=== PATIENT | female | born 1970 | race Caucasian/White ===

== ENCOUNTER 2018-03-10 05:28 | Inpatient (IN) | END 2018-03-13 21:13 | disposition home or self-care (01) | DRG 470 ==

== ENCOUNTER 2018-06-23 07:32 | Inpatient (IN) | payer BC ==
[2018-06-20 12:27] VITALS: BMI 28.1
[2018-06-23] VITALS (35 sets, daily range): BP systolic 95–119; BP diastolic 51–83; PULSE 63–86; RESP 16–25; Ht 170.2 cm; Wt 82.2 kg
[~2018-06-23] VITALS: Ht 170.2 cm; Wt 82.2 kg
--- NOTE | 2018-06-23 06:03 | HPN ---
Date/Time of Note Date/Time of Note DATE: 06/23/18 TIME: 06:03 Interval H&P Admission Note Pt. seen H&P reviewed: No system changes VIOLETTE GUERRA MD Jun 23, 2018 06:03
--- NOTE | 2018-06-23 06:05 | OPR ---
Date/Time of Note Date/Time of Note DATE: 06/23/18 TIME: 06:03 Operative Report Procedure Date: Jun 23, 2018 Preoperative Diagnosis Left hip primary arthritis Postoperative Diagnosis Left hip primary arthritis Operation/Procedure Performed 1. Left total hip arthroplasty 2. Left hip injection of PRP solution Surgeon see signature line Filbert Grower Andre Candelario PA-C Second Filbert Grower: JAYLON LÓPEZ Anesthesia Type: general Estimated Blood Loss: 200 - 250 ml's Transfusion none Specimen NONE Grafts/Implants none Complications none Pt Condition Post Procedure: stable Disposition: PACU Procedure Description Filbert Grower Surgeon: Mr Candelario was integral to the positioning and assistance necessary in the exposure of the hip joint as well as protection of the neurovascular structures. In my opinion at the assistance offered by a certified ophthalmic surgical assistant is insufficient and Mr. Camacho should be compensated for his time. PROCEDURE IN DETAIL: Following the administration of general endotracheal ane sthesia supplemented with a spinal anesthetic, the patient was placed in the supine position. The antecubital fossa on the left was prepped and 60 cc of blood were aspirated. Under sterile conditions, the blood was passed off to the logistics service representative from the company who prepared the PRP solution. The left lower extremity was then prepped and draped in the usual sterile fashion. A temporary office assistant radiograph was obtained for preliminary limb length and femoral size as well as acetabular size. A lateral incision was then made exposing the tensor fascia the fascia was incised the tensor was retracted laterally and the vessels were cauterized. The anterior capsule was then identified and prepared. A capsulectomy was then performed and the femoral head was then evaluated. Severe arthritic changes were noted. A femoral head cut was then made in the appropriate degree of version and inclination. Following dislocation, severe arthritic changes were noted with very certain severe cystic changes in the femoral head. The acetabulum was then exposed and a capsulectomy and labrectomy were completed. The central portion was then entered and serially reamed up to the 47 mm size. A Depuy Monson cup which was 52 mm, with a standard liner was then fit into position with solid fixation. A 30 mm screw was used for additional fixation. Attention was then directed to the femur, the femur was exposed and prepared. The canal was entered and serially reamed up to the size 4. The femoral canal was then thoroughly irrigated and the PRP solution was then instilled into the femoral canal. A size 4 Depuy Actis stem was then inserted with solid fixation. A 32 mm, +1.5 mm femoral head, which was ceramic was then inserted. The leg was taken through full range of motion with no evident instability. In addition, radiographs revealed excellent position with reproduction of the limb lengths within a millimeter. The wound was irrigated thoroughly. The wound was then closed in layers and a Prenio for the final cover. This was watertight. Estimated blood loss was procedure was 250 cc. Postoperative radiographs will be obtained in the recovery room. VIOLETTE GUERRA MD Jun 23, 2018 06:05
[~2018-06-23 07:32] MED LIST: BUPIVACAINE 0.5% (SDV) 30 ML, morphine SULFATE (PF) 8 MG, EPINEPHrine 0.3 MG, KETOROLAC... IRR SCH; CEFAZOLIN 1 GM INJ ONE; CEFAZOLIN 2 GM/50 ML (PMX) 50 ML IVPB ONE; DEXAMETHASONE 1 MG TAB PO ONE; GABAPENTIN 300 MG CAP PO ONE; SOD CHLORIDE 0.9% 100 ML, TRANEXAMIC ACID 3,000 MG IRR ONE
--- NOTE | 2018-06-23 09:08 | PREAC ---
Date/Time of Note Date/Time of Note DATE: 06/23/18 TIME: 09:07 Anesthesia Eval and Record Evaluation Time Pre-Procedure Interview DATE: 06/23/18 TIME: 09:07 Age 48 Sex female NPO: 8 hrs Preoperative diagnosis L Hip OA Planned procedure L Total Hip Replacement Past Medical History Past Medical History: Includes GI: Obesity Surgery & Anesthesia Issues No known issue Meds Anticoagulation: No Beta Jeanne within 24 hr: No Reason Beta Jeanne not given: Pt. not on B-Jeanne No Active Prescriptions or Reported Meds Meds reviewed: Yes Allergies Coded Allergies: No Known Allergy (Unverified , 06/23/18) Allergies Reviewed: Yes Labs/Studies Labs Reviewed: Reviewed by anesthesiologist test: Negative Pre-procedure Exam Last vitals Vital Signs Date Temp Pulse Resp B/P (MAP) Pulse Ox O2 O2 Flow FiO2 Time Delivery Rate 06/23/18 97.6 75 16 114/63 96 Room Air 08:37 (80) Airway: Adequate mouth opening, Adequate thyromental dist Mallampati: Mallampati II Teeth: Normal Lung: Normal Heart: Normal ASA Physical Status ASA physical status: 2 Emergency: None Planned Anesthetic General/MAC: ETT Neuraxial: Spinal Planned Pain Management Sub-arachniod narcotics Pre-operative Attestations Prior to commencing anesthesia and surgery, the patient was re-evaluated, there was verification of: *The patient's identity *The results of appropriate recent lab work and preoperative vital signs *The above evaluation not changing prior to induction *Anesthetic plan, risk benefits, alternative and complications discussed with patient/family; questions answered; patient/family understands, accepts and wishes to proceed. LOC GIRALDO Jun 23, 2018 09:08
[2018-06-23] MEDS ORDERED: MIDAZOLAM 1 MG/ML 2 ML INJ ONE (09:20)
[2018-06-23] MEDS ORDERED: DIPHENHYDRAMINE 50 MG INJ IV PRN ×2 (09:30→11:00)
[2018-06-23] MEDS ORDERED: MEPERIDINE 25 MG INJ IV PRN (09:30)
[2018-06-23] MEDS ORDERED: HYDROmorphONE 1 MG/5 ML IV SYRINGE IV PRN ×3 (09:30)
[2018-06-23] MEDS ORDERED: METOCLOPRAMIDE 10 MG INJ IV PRN (09:30)
[2018-06-23] MEDS ORDERED: FENTAnyl 50 MCG/ML VIAL IV PRN ×3 (09:30)
[2018-06-23] MEDS ORDERED: ONDANSETRON 4 MG INJ IV PRN ×2 (09:30→11:00)
[2018-06-23] MEDS ORDERED: ALBUTEROL 0.083% (NEB) 2.5 MG/3 ML AMP HHN PRN (09:30)
[2018-06-23] MEDS: TRANEXAMIC ACID 1GM/100ML(PMX) 100 ML IVPB ONE ×2 (10:00→12:45)
[2018-06-23] MEDS ORDERED: CA CHLORIDE 10% 10 ML SYRINGE ONE (10:01)
[2018-06-23] MEDS ORDERED: THROMBIN 5000 UNIT VIAL ONE (10:01)
[2018-06-23] MEDS ORDERED: POLYMYXIN/BACITRACIN 1L IRRIG ONE (10:03)
[2018-06-23] MEDS: TRANEXAMIC ACID 1GM/100ML(PMX) 200 ML ONE ×2 (10:45→12:45)
[2018-06-23] MEDS ORDERED: CEFAZOLIN 1 GM/50 ML (PMX) 50 ML IVPB SCH (11:00)
[2018-06-23] MEDS ORDERED: NACL 0.9% 3 ML SYG IV SCH (11:00)
[2018-06-23] MEDS ORDERED: ZOLPIDEM 5 MG TAB PO PRN (11:00)
[2018-06-23] MEDS ORDERED: MAGNESIUM HYDROXIDE 30ML CUP PO PRN (11:00)
[2018-06-23] MEDS ORDERED: SUCCINYLCHOLINE CHLORIDE 100 MG/5 ML SYG IV ONE (11:08)
[2018-06-23] MEDS ORDERED: LIDOCAINE 100 MG SYRINGE ONE (11:08)
[2018-06-23] MEDS ORDERED: PROPOFOL 20 ML ONE (11:08)
[2018-06-23] MEDS ORDERED: ROCURONIUM 50 MG INJ ONE (11:08)
[2018-06-23] MEDS ORDERED: SUGAMMADEX SODIUM 200 MG/2 ML VIAL IV ONE (11:09)
[2018-06-23] MEDS ORDERED: CEFAZOLIN 1 GM/50 ML (PMX) 0 ML IVPB ONE (12:22)
[2018-06-23] MEDS ORDERED: HYDROmorphONE 1 MG/ML SYG IV PRN (14:00)
[2018-06-23] MEDS: ACETAMINOPHEN 1000MG/100ML IV 100 ML IVPB SCH ×2 (14:00→19:05)
[2018-06-23] MEDS ORDERED: oxyCODONE 5 MG TAB PO PRN (14:00)
[2018-06-23] MEDS: DEXAMETHASONE 2 MG TAB PO SCH ×3 (18:00→23:35)
[2018-06-23] MEDS: CEFAZOLIN 1 GM/50 ML (PMX) 50 ML IVPB SCH (18:04)
[2018-06-23] MEDS: LACTATED RINGER'S 1,000 ML IV SCH ×2 (18:07→20:58)
--- NOTE | 2018-06-23 18:08 | PDOCDIS ---
Discharge Instructions DIAGNOSIS Discharge Diagnosis Hip Arthritis CONDITION [id number] Patient Condition: [id number] Good HOME CARE INSTRUCTIONS: [id number] Diet Instructions: [id number] Regular ACTIVITY: [id number] Activity Restrictions: [id number] Slowly Increase Activity Keep Limb Elevated [id number] Bathing Restrictions: Frisa0m Shower FOLLOW UP/APPOINTMENTS Follow-up Plan 2 weeks in the office SCHOOL/WORK RELEASE May return to School/Work with: With Restrictions School/Work Release Comment: No hip extension for three months VIOLETTE GUERRA MD Jun 23, 2018 18:08
--- NOTE | 2018-06-23 18:58 | PAC ---
Date/Time of Note Date/Time of Note DATE: 06/23/18 TIME: 18:58 Post-Anesthesia Notes Post-Anesthesia Note Last documented vital signs Vital Signs Date Temp Pulse Resp B/P (MAP) Pulse Ox O2 O2 Flow FiO2 Time Delivery Rate 06/23/18 98.4 63 18 102/57 100 Room Air 16:45 (72) Activity: WNL Respiratory function: WNL Cardiovascular function: WNL Mental status: Baseline Pain reasonably controlled: Yes Hydration appropriate: Yes Nausea/Vomiting absent: Yes LOC GIRALDO Jun 23, 2018 18:58
[2018-06-23] MEDS: GABAPENTIN 300 MG CAP PO SCH (21:00)
[2018-06-23] MEDS: SENNA/DOCUSATE NA (8.6MG/50MG) TAB PO SCH (21:06)
[2018-06-24 00:09] VITALS: BP 114/65; PULSE 65; RESP 20
[2018-06-24] MEDS: CEFAZOLIN 1 GM/50 ML (PMX) 50 ML IVPB SCH ×2 (01:29→10:42)
[2018-06-24] MEDS: ACETAMINOPHEN 1000MG/100ML IV 100 ML IVPB SCH (03:39)
--- NOTE | 2018-06-24 06:08 | PN ---
Date/Time of Note Date/Time of Note DATE: 06/24/18 TIME: 06:08 Subjective Awake and alert with no complaints Objective Vitals Vital Signs Date Temp Pulse Resp B/P (MAP) Pulse Ox O2 O2 Flow FiO2 Time Delivery Rate 06/24/18 98.6 65 20 114/65 96 Room Air 00:09 (81) Intake and Output 06/23/18 06/23/18 06/24/18 1414:59 22:59 06:59 IntakeIntake Total 2400 ml 250 ml 500 ml OutputOutput Total 325 ml 800 ml 1800 ml BalanceBalance 2075 ml -550 ml -1300 ml Wound is clean and dry. Neurologically intact. No signs of DVT. Results Result Diagram: 06/24/18 0435 Medications Medications Current Medications Lactated Ringer's 1,000 ml @ 100 mls/hr Q10H IV Last administered on 06/23/18at 18:07; Admin Dose 100 MLS/HR; Start 06/23/18 at 10:58 Senna/Docusate Sodium (Senokot-S) 1 tab BID PO Last administered on 06/23/18at 21:06; Admin Dose 1 TAB; Start 06/23/18 at 21:00 Simethicone (Mylicon) 80 mg TID PRN PO .GAS; Start 06/23/18 at 11:00 Magnesium Hydroxide (Milk Of Mag) 30 ml BID PRN PO .CONSTIPATION; Start 06/23/18 at 11:00 Magnesium Hydroxide (Milk Of Mag) 30 ml HS PO ; Start 06/25/18 at 21:00 Gabapentin (Neurontin) 300 mg HS PO ; Start 06/23/18 at 21:00 Oxycodone HCl (Roxicodone) 15 mg Q4H PRN PO .PAIN; Start 06/23/18 at 14:00 Oxycodone HCl (Roxicodone) 10 mg Q4H PRN PO .PAIN; Start 06/23/18 at 14:00 Oxycodone HCl (Roxicodone) 5 mg Q4H PRN PO .PAIN; Start 06/23/18 at 14:00 Hydromorphone HCl (Dilaudid) 1 mg Q4H PRN IV .BREAKTHROUGH PAIN; Start 06/23/18 at 14:00 Ondansetron HCl (Zofran Inj) 4 mg Q6H PRN IV NAUSEA/VOMITING; Start 06/23/18 at 11:00 Diphenhydramine HCl (Benadryl) 25 mg Q6H PRN IV .PRURITUS; Start 06/23/18 at 11:00 Zolpidem Tartrate (Ambien) 10 mg HS PRN PO .INSOMNIA; Start 06/23/18 at 11:00 IV Flush (NS 3 ml) 3 ml per protocol IV ; Start 06/23/18 at 11:00 Aspirin (Ecotrin) 325 mg DAILY PO ; Start 06/24/18 at 09:00 Cefazolin Sodium 50 ml @ 100 mls/hr Q8H IVPB Last administered on 06/24/18at 01:29; Admin Dose 100 MLS/HR; Start 06/23/18 at 18:00; Stop 06/24/18 at 10:29 VTE Prophylaxis Risk score (from Ns)>0 risk: 5 [place] [facility] [place]/Catheters IV Catheter Type: Saline Lock [place] in Place: No Assessment/Plan Assessment/Plan Assessment: Status post total hip replacement Plan: Begin PT this morning discharge after cleared VIOLETTE GUERRA MD Jun 24, 2018 06:08
[2018-06-24] MEDS: DEXAMETHASONE 2 MG TAB PO SCH (06:09)
[2018-06-24] MEDS: LACTATED RINGER'S 1,000 ML IV SCH ×2 (06:09→16:58)
--- NOTE | 2018-06-24 06:09 | DS ---
Date/Time of Note Date/Time of Note DATE: 06/24/18 TIME: 06:08 Discharge Summary Admission/Discharge Info Admit Date/Time Jun 23, 2018 at 07:32 Discharge Date/Time 06/24/2018 Discharge Diagnosis Hip Arthritis Patient Condition: Good Hospital Course Admitted and underwent uncomplicated procedure. Postop day 1 doing well discharge after PT Home Meds No Active Prescriptions or Reported Meds Follow-up Plan 2 weeks in the office Primary Care Provider Not On Staff Doctor Pending Labs Laboratory Tests Test 06/23/18 11:58 06/24/18 04:35 White Blood Count 7.0 10^3/ul (4.8-10.8) 11.3 10^3/ul (4.8-10.8) Red Blood Count 3.84 10^6/ul (4.20-5.40) 3.60 10^6/ul (4.20-5.40) Hemoglobin 11.0 g/dl (12.0-16.0) 10.5 g/dl (12.0-16.0) Hematocrit 34.5 % (37.0-47.0) 32.6 % (37.0-47.0) Mean Corpuscular Volume 89.8 fl (82.0-101.0) 90.6 fl (82.0-101.0) Mean Corpuscular 28.6 pg (29.0-33.0) 29.2 pg (29.0-33.0) Hemoglobin Mean Corpuscular 31.9 g/dl (32.0-37.0) 32.2 g/dl (32.0-37.0) Hemoglobin Concent Red Cell Distribution 14.1 % (11.5-14.5) 14.4 % (11.5-14.5) Width Platelet Count 293 10^3/UL (140-415) 286 10^3/UL (140-415) Mean Platelet Volume 9.3 fl (7.4-10.4) 10.2 fl (7.4-10.4) Immature Granulocytes % 1.700 % (0.001-0.429) 0.500 % (0.001-0.429) Neutrophils % 75.1 % (39.0-77.0) 85.2 % (39.0-77.0) Lymphocytes % 17.5 % (15.0-51.0) 8.7 % (15.0-51.0) Monocytes % 4.3 % (0.0-11.0) 5.4 % (0.0-11.0) Eosinophils % 0.7 % (0.0-7.0) 0.0 % (0.0-7.0) Basophils % 0.7 % (0.0-2.0) 0.2 % (0.0-2.0) Nucleated Red Blood Cells 0.0 /100WBC (0.0-0.0) 0.0 /100WBC (0.0-0.0) % Immature Granulocytes # 0.120 10^3/ul (0.0-0.031) 0.060 10^3/ul (0.0-0.031) Neutrophils # 5.2 10^3/ul (1.6-7.5) 9.7 10^3/ul (1.6-7.5) Lymphocytes # 1.2 10^3/ul (0.8-2.9) 1.0 10^3/ul (0.8-2.9) Monocytes # 0.3 10^3/ul (0.3-0.9) 0.6 10^3/ul (0.3-0.9) Eosinophils # 0.1 10^3/ul (0.0-0.5) 0.0 10^3/ul (0.0-0.5) Basophils # 0.1 10^3/ul (0.0-0.1) 0.0 10^3/ul (0.0-0.1) Nucleated Red Blood Cells 0.0 10^3/ul (0.0-0.0) 0.0 10^3/ul (0.0-0.0) VIOLETTE HAGEN MD Jun 24, 2018 06:09
[2018-06-24 07:44] VITALS: BP 106/53; PULSE 65; RESP 18
[2018-06-24] MEDS: oxyCODONE 5 MG TAB PO PRN ×4 (08:06→22:32)
[2018-06-24] MEDS: ASPIRIN (EC) 325 MG TAB PO SCH (08:56)
[2018-06-24] MEDS: SENNA/DOCUSATE NA (8.6MG/50MG) TAB PO SCH ×2 (08:56→21:32)
[2018-06-24 15:03] VITALS: BP 127/65; PULSE 74; RESP 18
[2018-06-24 19:10] VITALS: BP 116/67; PULSE 71; RESP 20
[2018-06-24] MEDS: GABAPENTIN 300 MG CAP PO SCH (21:32)
[2018-06-25] MEDS: LACTATED RINGER'S 1,000 ML IV SCH ×3 (01:37→22:58)
[2018-06-25 01:45] VITALS: BP 125/70; RESP 19
[2018-06-25] MEDS: oxyCODONE 5 MG TAB PO PRN ×5 (05:09→21:51)
[2018-06-25 08:12] VITALS: BP 114/57; PULSE 63; RESP 18
[2018-06-25] MEDS: ASPIRIN (EC) 325 MG TAB PO SCH (09:05)
[2018-06-25] MEDS: SENNA/DOCUSATE NA (8.6MG/50MG) TAB PO SCH ×2 (09:05→20:56)
[2018-06-25 13:48] VITALS: BP 110/71; PULSE 88; RESP 17
[2018-06-25 20:25] VITALS: BP 100/51; PULSE 69; RESP 20
[2018-06-25] MEDS: GABAPENTIN 300 MG CAP PO SCH (20:56)
[2018-06-25] MEDS: MAGNESIUM HYDROXIDE 30ML CUP PO SCH (21:00)
[2018-06-26 02:06] VITALS: BP 106/62; PULSE 70; RESP 18
[2018-06-26] MEDS: oxyCODONE 5 MG TAB PO PRN ×6 (03:10→23:47)
[2018-06-26 07:47] VITALS: BP 109/52; PULSE 79; RESP 20
[2018-06-26] MEDS: ASPIRIN (EC) 325 MG TAB PO SCH (08:22)
[2018-06-26] MEDS: SENNA/DOCUSATE NA (8.6MG/50MG) TAB PO SCH ×2 (08:22→21:02)
[2018-06-26 13:57] VITALS: BP 115/55; PULSE 80; RESP 18
[2018-06-26] MEDS: LACTATED RINGER'S 1,000 ML IV SCH ×2 (18:58→19:46)
[2018-06-26 19:18] VITALS: BP 97/48; PULSE 83; RESP 16
[2018-06-26] MEDS: GABAPENTIN 300 MG CAP PO SCH (21:00)
[2018-06-26] MEDS: MAGNESIUM HYDROXIDE 30ML CUP PO SCH (21:02)
[2018-06-27 02:55] VITALS: BP 114/55; PULSE 78; RESP 16
[2018-06-27] MEDS: LACTATED RINGER'S 1,000 ML IV SCH ×2 (05:12→14:58)
[2018-06-27] MEDS: oxyCODONE 5 MG TAB PO PRN ×3 (05:15→15:14)
--- NOTE | 2018-06-27 06:12 | PN ---
Date/Time of Note Date/Time of Note DATE: 06/27/18 TIME: 06:12 Subjective more comfortable this AM. Sound asleep as I walked in. Very comfortable. DIscussed need to go home just like she did the last time when she still had a bad hip. NOw has two good hips, so should be better. Objective Vitals Vital Signs Date Temp Pulse Resp B/P (MAP) Pulse Ox O2 O2 Flow FiO2 Time Delivery Rate 06/27/18 98.9 78 16 114/55 100 Room Air 02:55 (74) Intake and Output 06/26/18 06/26/18 06/27/18 1515:00 23:00 07:00 IntakeIntake Total 440 ml 660 ml 1000 ml BalanceBalance 440 ml 660 ml 1000 ml Wound cleand and dry. NVI. No signs DVT No swelling, warmth. Results Result Diagram: 06/27/18 0442 Medications Medications Current Medications Lactated Ringer's 1,000 ml @ 100 mls/hr Q10H IV Last administered on 06/27/18at 05:12; Admin Dose 100 MLS/HR; Start 06/23/18 at 10:58 Senna/Docusate Sodium (Senokot-S) 1 tab BID PO Last administered on 06/26/18 21:02; Admin Dose 1 TAB; Start 06/23/18 at 21:00 Simethicone (Mylicon) 80 mg TID PRN PO .GAS; Start 06/23/18 at 11:00 Magnesium Hydroxide (Milk Of Mag) 30 ml BID PRN PO .CONSTIPATION; Start 06/23/18 at 11:00 Magnesium Hydroxide (Milk Of Mag) 30 ml HS PO Last administered on 06/26/18at 21:02; Admin Dose 30 ML; Start 06/25/18 at 21:00 Gabapentin (Neurontin) 300 mg HS PO Last administered on 06/25/18at 20:56; Admin Dose 300 MG; Start 06/23/18 at 21:00 Oxycodone HCl (Roxicodone) 15 mg Q4H PRN PO .PAIN Last administered on 06/26/18 19:46; Admin Dose 15 MG; Start 06/23/18 at 14:00 Oxycodone HCl (Roxicodone) 10 mg Q4H PRN PO .PAIN Last administered on 3/25/19at 05:15; Admin Dose 10 MG; Start 06/23/18 at 14:00 Oxycodone HCl (Roxicodone) 5 mg Q4H PRN PO .PAIN; Start 06/23/18 at 14:00 Hydromorphone HCl (Dilaudid) 1 mg Q4H PRN IV .BREAKTHROUGH PAIN; Start 06/23/18 at 14:00 Ondansetron HCl (Zofran Inj) 4 mg Q6H PRN IV NAUSEA/VOMITING; Start 06/23/18 at 11:00 Diphenhydramine HCl (Benadryl) 25 mg Q6H PRN IV .PRURITUS; Start 06/23/18 at 11:00 Zolpidem Tartrate (Ambien) 10 mg HS PRN PO .INSOMNIA; Start 06/23/18 at 11:00 IV Flush (NS 3 ml) 3 ml per protocol IV ; Start 06/23/18 at 11:00 Aspirin (Ecotrin) 325 mg DAILY PO Last administered on 06/26/18at 08:22; Admin Dose 325 MG; Start 06/24/18 at 09:00 VTE Prophylaxis Risk score (from Nsg)>0 risk: 2 SCD applied (from Ns): Yes Lines/Catheters IV Catheter Type: Saline Lock [place] in Place: No Assessment/Plan Hospital Course Admitted and underwent uncomplicated procedure. Postop day 1 doing well discharge after PT Assessment/Plan A: s/p THR with slow ambulation P: D/c Home this am. Discussed that she will be slow, but is ready for discharge to a home environment VIOLETTE GUERRA MD Jun 27, 2018 06:12
[2018-06-27 07:54] VITALS: BP 106/50; PULSE 73; RESP 18
[2018-06-27] MEDS: SENNA/DOCUSATE NA (8.6MG/50MG) TAB PO SCH (08:19)
[2018-06-27] MEDS: ASPIRIN (EC) 325 MG TAB PO SCH (08:19)
[2018-06-27 14:05] VITALS: BP 97/48; PULSE 71; RESP 18
== END 2018-06-27 19:35 | disposition home or self-care (01) | DRG 470 ==
LOC: REC 07:32 → EDSTATUS 13:30 → MS1 13:34
PROVIDERS: ADMIT Orthopaedic Surgery; ATTEND Orthopaedic Surgery
PROC: 0SRB04A Replacement of Left Hip Joint with Ceramic on Polyethylene Synthetic Substitute, Uncemented, Open Approach (ICD-10-PCS; principal; 2018-06-23 09:30)
DX: M16.12 Unilateral primary osteoarthritis, left hip (principal); G89.18 Other acute postprocedural pain; E66.9 Obesity, unspecified; Z68.28 Body mass index [BMI] 28.0-28.9, adult
CPT/HCPCS: 72170; 73530; 84703; 85025; 86999; 87086; 88304; 88311; 97116; 97162; 97530; C1713; C1776; J0131; J0171; J0690; J0735; J1885; J2001; J2250; J2274; J3370; J7120